=== PATIENT | male | born 1985 | race Caucasian/White ===

== ENCOUNTER 2021-06-05 16:35 | Emergency (ER) | payer MEDICAID ==
[~2021-06-05] VITALS: Ht 160 cm; Wt 74.0 kg
[2021-06-05] MEDS ORDERED: HYDROCODONE/ACETAMINOPHEN 5/325MG TABLET PO ONE (17:00)
[2021-06-05] MEDS ORDERED: IBUPROFEN 400MG TABLET PO ONE (17:00)
[2021-06-05] MEDS ORDERED: IBUP-2028 MT (17:42)
[2021-06-05] MEDS ORDERED: HYDR-4001 MT (17:42)
[2021-06-05 18:35] VITALS: BP 116/89
== END 2021-06-05 19:00 | disposition home or self-care (01) ==
LOC: ER 16:35 → EDSEX 16:35 → ER 19:00
DX: S82.491A Other fracture of shaft of right fibula, initial encounter for closed fracture (principal); W18.39XA Other fall on same level, initial encounter; Y93.89 Activity, other specified; Y92.89 Other specified places as the place of occurrence of the external cause; Y99.8 Other external cause status; Z98.890 Other specified postprocedural states
CPT/HCPCS: 73560; 73590; 73600; 73620; 99284